=== PATIENT | male | born 1965 | race Hispanic/Latino ===

== ENCOUNTER 2020-06-23 10:09 | Outpatient (CLI) | payer MEDICARE ==
--- NOTE | 2020-06-23 13:19 | RAD ---
PA AND LATERAL VIEWS CHEST: Date: 06/23/2020 HISTORY: Tobacco abuse in remission. COMPARISON: 02/12/2016. FINDINGS: The heart size is normal. Lungs are well expanded without focal areas of consolidation, pneumothorace s, or pleural effusions. There are degenerative changes in the spine. There are postop changes and metallic hardware in the left clavicle and proximal humerus. IMPRESSION: No radiographic evidence of acute cardiopulmonary process. POS: AH
== END 2020-06-23 10:10 | disposition home or self-care (01) ==
LOC: BICRAD 10:09
PROVIDERS: ATTEND Internal Medicine
DX: Z72.0 Tobacco use (principal)
CPT/HCPCS: 71046

== ENCOUNTER 2022-11-01 09:51 | Emergency (ER) | payer MEDICARE ==
[2022-11-01] MEDS ORDERED: Ketorolac Tromethamine 30 MG/ML VIAL ONE (10:42)
== END 2022-11-01 12:22 | disposition home or self-care (01) ==
LOC: ERS 09:51
DX: I82.4Z2 Acute embolism and thrombosis of unspecified deep veins of left distal lower extremity (principal); Z79.01 Long term (current) use of anticoagulants; Z87.891 Personal history of nicotine dependence
CPT/HCPCS: 96372; J1885

== ENCOUNTER 2023-04-13 15:22 | Emergency (ER) | payer MEDICARE ==
[2023-04-13 16:01] LABS: #Eosinphils 0.2 thou/uL (0.0-0.7); #Monocytes 0.7 thou/uL (0.11-0.59); #Neutrophils 5.1 thou/uL (1.40-6.50); %Basophils 0.4 % (0.0-1.0); %Eosinophils 1.9 % (0.0-10.0); %Lymphocytes 29.1 % (21.0-51.0); %Neutrophils 60.1 % (42.0-75.0); Hemoglobin 11.8 g/dL (14.0-18.0); Mean Corpuscular HGB CONC 33.3 g/dL (32.0-36.0); Mean Corpuscular Hemoglobin 30.3 pg (27.0-31.0); Mean Platelet Volume 9.3 fL (7.4-10.4); Platelet Count 209 10x3/uL (130-400); RBC Distribution Width 14.8 % (11.5-14.5); Red Blood Cell (RBC) Count 3.89 mill/uL (4.70-6.10); White Blood Cell (WBC) Count 8.5 10x3/uL (4.8-10.8)
[2023-04-13 16:24] LABS: ALT (SGPT) 28 U/L (8-55); AST (SGOT) 17 U/L (5-34); Albumin 3.9 g/dL (3.5-5.0); Alkaline Phosphatase 43 U/L (40-110); Anion Gap 15 mmol/L (10-20); BUN (Urea Nitrogen) 22 mg/dL (8.4-25.7); Bilirubin, Total 0.3 mg/dL (0.2-1.2); CK (CPK) 240 U/L (30-200); Calc. Creatinine Clearance 0 mL/min (70-130); Calcium 9.3 mg/dL (7.8-10.44); Carbon Dioxide 23 mmol/L (22-29); Chloride 107 mmol/L (98-107); Estimated GFR 74; Globulin 2.9 g/dL (2.4-3.5); Glucose 106 mg/dL (70-105); Magnesium 1.8 mg/dL (1.6-2.6); Potassium 4.2 mmol/L (3.5-5.1); Protein, Total 6.8 g/dL (6.0-8.3); Sodium 141 mmol/L (136-145)
== END 2023-04-13 17:12 | disposition home or self-care (01) ==
LOC: ERS 15:22
DX: R25.2 Cramp and spasm (principal); Z87.891 Personal history of nicotine dependence
CPT/HCPCS: 36415; 80053; 82550; 83735; 85025; 93970

== ENCOUNTER 2024-09-03 11:40 | Outpatient (CLI) | payer MEDICARE | END 2024-09-03 11:41 | disposition home or self-care (01) | LOC: ULT 11:40 | PROVIDERS: ATTEND Nurse Practitioner Family | DX: I82.402 Acute embolism and thrombosis of unspecified deep veins of left lower extremity (principal); M79.662 Pain in left lower leg | CPT/HCPCS: 93970 ==